=== PATIENT | female | born 1985 | race Caucasian/White ===

== ENCOUNTER 2021-03-30 15:52 | Inpatient (IN) | payer OTHER ==
[~2021-03-30] VITALS: Ht 165.1 cm; Wt 84.2 kg
[~2021-03-30 15:52] MED LIST: AMOX1TAB64 PO
[2021-03-30] MEDS ORDERED: FLUO10CA13 PO (16:57)
[2021-03-30] MEDS ORDERED: SODIUM CHLORIDE FLUSH 10ML SYR IVF ONE (17:00)
--- NOTE | 2021-03-30 17:01 | NUR ---
HOLD ON IV/ACCESSING PORT UNTIL LAB RESULTS BACK. LABS DRAWN, VSS/UPDATED IN COMPUTER. CALL LIGHT WITHIN REACH.
[2021-03-30 17:10] LABS: BASOPHILS % (AUTO) 2 % (0-1); EOSINOPHILS % (AUTO) 1 % (1-7); LYMPHOCYTES % (AUTO) 31 % (22-44); MEAN CORPUSCULAR HEMOGLOBIN 29.2 pg (27.0-34.8); MEAN CORPUSCULAR HGB CONC 32.5 g/dL (32.4-35.8); MEAN PLATELET VOLUME 7.8 fL (7.4-10.4); MONOCYTES % (AUTO) 10 % (2-9); NEUTROPHILS % (AUTO) 56 % (42-75); PLATELET COUNT 472 x10^3/uL (130-400); RED BLOOD COUNT 4.33 x10^6/uL (3.82-5.3); RED CELL DISTRIBUTION WIDTH 19.3 % (9.6-15.2)
[2021-03-30 17:22] LABS: ALBUMIN 3.8 g/dL (3.4-5.0); ANION GAP 5 mmol/L (5-15); CALCIUM 8.7 mg/dL (8.5-10.1); CHLORIDE 108 mmol/L (98-107); CREATININE 0.67 mg/dL (0.55-1.02)
[2021-03-30] MEDS ORDERED: PANTOPRAZOLE 80 MG in SODIUM CHLORIDE 0.9% 50 ML IVPB ONE (18:00)
[2021-03-30] MEDS ORDERED: PANTOPRAZOLE 80 MG in SODIUM CHLORIDE 0.9% 100 ML IV SCH (18:00)
[2021-03-30] MEDS ORDERED: ONDANSETRON 2MG/ML, 2ML IVPush PRN (19:00)
[2021-03-30] MEDS ORDERED: BISACODYL 10 MG SUPP PR PRN (19:00)
[2021-03-30] MEDS ORDERED: ACETAMINOPHEN 325 MG TABLET PO PRN (19:00)
--- NOTE | 2021-03-30 19:02 | NUR ---
REPORT TO MARVA, TRANSFER OF CARE AT THIS TIME.
[2021-03-30] MEDS ORDERED: L.E.T SOLUTION TP ONE (19:05)
--- NOTE | 2021-03-30 19:22 | NUR ---
PORT ACCESSED WITH 1" PORT NEEDLE, UNDER STERILE TECHNIQUE. PT REFUSED LET OR NUMBING MEDICINE, AND PORT ACCESED X1 ATTEMPT, AND POSITIVE BLOOD DRAWBACK AND FLUSHES EASILY. PORT NEEDLE SECURED WELL WITH DRESSING AND PT IN NO ACUTE DISTRESS.
[2021-03-30 20:01] VITALS: BP 120/75
[2021-03-30] MEDS ORDERED: TRAZ-96 PO (20:03)
--- NOTE | 2021-03-30 20:06 | NUR ---
REPORT AND CARE CALLED TO FLOOR RN. PT TRANSFERRED UP WITHOUT INCIDENT.
[2021-03-30] MEDS: PANTOPRAZOLE 80 MG in SODIUM CHLORIDE 0.9% 100 ML IV SCH (20:20)
[2021-03-31 00:52] VITALS: BP 103/66
[2021-03-31] MEDS: PANTOPRAZOLE 80 MG in SODIUM CHLORIDE 0.9% 100 ML IV SCH (05:18)
[2021-03-31 05:40] LABS: BASOPHILS % (AUTO) 1 % (0-1); EOSINOPHILS % (AUTO) 3 % (1-7); LYMPHOCYTES % (AUTO) 39 % (22-44); MEAN CORPUSCULAR HEMOGLOBIN 29.5 pg (27.0-34.8); MEAN CORPUSCULAR HGB CONC 32.9 g/dL (32.4-35.8); MEAN PLATELET VOLUME 8.1 fL (7.4-10.4); MONOCYTES % (AUTO) 12 % (2-9); NEUTROPHILS % (AUTO) 45 % (42-75); PLATELET COUNT 469 x10^3/uL (130-400); RED BLOOD COUNT 4.25 x10^6/uL (3.82-5.3); RED CELL DISTRIBUTION WIDTH 19.6 % (9.6-15.2)
[2021-03-31 05:54] LABS: ANION GAP 4 mmol/L (5-15); CALCIUM 8.2 mg/dL (8.5-10.1); CHLORIDE 110 mmol/L (98-107)
[2021-03-31 05:56] LABS: CREATININE 0.66 mg/dL (0.55-1.02)
[2021-03-31 08:25] VITALS: BP 120/77
[2021-03-31] MEDS: FLUOXETINE 10 MG CAP PO SCH (09:16)
[2021-03-31] MEDS ORDERED: PROPOFOL 10 MG/ML, 20ML ONE ×2 (12:34)
[2021-03-31] MEDS ORDERED: MIDAZOLAM 1 MG/ML, 2ML ONE (12:34)
[2021-03-31] MEDS ORDERED: CHLORHEXIDINE 15 ML UDC ONE (12:37)
[2021-03-31] MEDS: PANTOPRAZOLE 40 MG IV IVPush SCH (15:20)
[2021-03-31] MEDS: SUCRALFATE 1 GM/10 ML UDC PO SCH ×2 (16:12→20:20)
[2021-03-31 19:16] VITALS: BP 121/83
[2021-04-01 00:23] VITALS: BP 103/54
[2021-04-01] MEDS: PANTOPRAZOLE 40 MG IV IVPush SCH (03:39)
[2021-04-01 07:14] VITALS: BP 117/76
[2021-04-01] MEDS: SUCRALFATE 1 GM/10 ML UDC PO SCH ×2 (09:07→11:49)
[2021-04-01] MEDS: FLUOXETINE 10 MG CAP PO SCH (09:07)
[2021-04-01] MEDS ORDERED: SUCR1TAB33 PO (12:21)
[2021-04-01] MEDS ORDERED: PANT40TA3 PO (12:21)
[2021-04-01 14:18] VITALS: BP 122/79
== END 2021-04-01 15:35 | disposition home or self-care (01) | DRG 378 ==
LOC: ED 17:40 → EDIP 18:04 → 3N 19:51 → DCLOUNGE 04-01 15:25
PROVIDERS: ADMIT Internal Medicine; ATTEND Internal Medicine
PROC: 0DB78ZX Excision of Stomach, Pylorus, Via Natural or Artificial Opening Endoscopic, Diagnostic (ICD-10-PCS; 2021-03-31)
PROC: 0DJD8ZZ Inspection of Lower Intestinal Tract, Via Natural or Artificial Opening Endoscopic (ICD-10-PCS; 2021-03-31)
PROC: 0W3P8ZZ Control Bleeding in Gastrointestinal Tract, Via Natural or Artificial Opening Endoscopic (ICD-10-PCS; principal; 2021-03-31 13:00)
DX: K31.811 Angiodysplasia of stomach and duodenum with bleeding (principal); D62 Acute posthemorrhagic anemia; Q89.01 Asplenia (congenital); K29.51 Unspecified chronic gastritis with bleeding; K27.4 Chronic or unspecified peptic ulcer, site unspecified, with hemorrhage; K20.91 Esophagitis, unspecified with bleeding; F32.9 Major depressive disorder, single episode, unspecified; Z79.899 Other long term (current) drug therapy; Z80.51 Family history of malignant neoplasm of kidney; Z82.49 Family history of ischemic heart disease and other diseases of the circulatory system; Z83.3 Family history of diabetes mellitus; Z87.11 Personal history of peptic ulcer disease; Z90.49 Acquired absence of other specified parts of digestive tract; Z88.8 Allergy status to other drugs, medicaments and biological substances
CPT/HCPCS: 36415; 80048; 82040; 82728; 83540; 83550; 84703; 85014; 85018; 85025; 86850; 86900; 87635; 88305; G0378; J2250; J2704; C9113

== ENCOUNTER 2021-06-18 09:08 | Outpatient (CLI) | payer OTHER ==
[~2021-06-18 09:08] MED LIST changes: +FLUO10CA13 PO; +PANT40TA3 PO; +SUCR1TAB33 PO; +TRAZ-96 PO
== END 2021-06-18 23:59 | disposition home or self-care (01) ==
LOC: CFH 09:08
PROVIDERS: ATTEND Internal Medicine
DX: R10.11 Right upper quadrant pain (principal); Z90.49 Acquired absence of other specified parts of digestive tract
CPT/HCPCS: 76705

== ENCOUNTER 2021-06-29 00:21 | Emergency (ER) | payer OTHER ==
[~2021-06-29] VITALS: Ht 165.1 cm; Wt 81.2 kg
[2021-06-29] MEDS ORDERED: MORPHINE SULFATE 4 MG/ML, 1ML IVPush PRN (02:30)
[2021-06-29] MEDS ORDERED: SODIUM CHLORIDE FLUSH 10ML SYR IVF ONE (02:30)
[2021-06-29] MEDS ORDERED: ONDANSETRON 2MG/ML, 2ML IVPush ONE (02:30)
[2021-06-29] MEDS ORDERED: SODIUM CHLORIDE 0.9% 1,000ML IVBOLUS ONE (02:30)
--- NOTE | 2021-06-29 03:30 | NUR ---
PT TO ROOM 12 AT THIS TIME. CARE ASSUMED. PT [id number]. REPORTS HAVING A GI BLEED WITH ABDOMINAL PAIN AND A HEADACHE FOR 3 DAYS. PT HAS HISTORY OF GI BLEEDS. PT CONNECTED TO MONITOR.
[2021-06-29] MEDS ORDERED: ONDANSETRON 2MG/ML, 2ML ONE (03:49)
[2021-06-29] MEDS ORDERED: MORPHINE SULFATE 4 MG/ML, 1ML ONE (03:49)
[2021-06-29] MEDS ORDERED: DIPHENHYDRAMINE 50 MG/ML, 1ML IVPush ONE (04:00)
[2021-06-29] MEDS ORDERED: ACETAMINOPHEN 500 MG TABLET PO ONE (04:00)
[2021-06-29] MEDS ORDERED: PROCHLORPERAZINE 5 MG/ML, 2ML IVPush ONE (04:00)
[2021-06-29 04:29] LABS: BASOPHILS % (AUTO) 1 % (0-1); EOSINOPHILS % (AUTO) 6 % (1-7); LYMPHOCYTES % (AUTO) 24 % (22-44); MEAN CORPUSCULAR HEMOGLOBIN 27.1 pg (27.0-34.8); MEAN CORPUSCULAR HGB CONC 32.6 g/dL (32.4-35.8); MEAN PLATELET VOLUME 7.8 fL (7.4-10.4); MONOCYTES % (AUTO) 12 % (2-9); NEUTROPHILS % (AUTO) 57 % (42-75); PLATELET COUNT 557 x10^3/uL (130-400); RED BLOOD COUNT 4.08 x10^6/uL (3.82-5.3); RED CELL DISTRIBUTION WIDTH 15.2 % (9.6-15.2)
[2021-06-29 04:37] LABS: ALANINE AMINOTRANSFERASE 43 U/L (12-78); ALBUMIN 3.2 g/dL (3.4-5.0); ANION GAP 6 mmol/L (5-15); CALCIUM 8.8 mg/dL (8.5-10.1); CHLORIDE 107 mmol/L (98-107); CREATININE 0.67 mg/dL (0.55-1.02)
[2021-06-29 04:38] LABS: INTERNATIONAL NORMALIZED RATIO 1.01 (0.93-1.1); PROTHROMBIN TIME 10.8 Seconds (9.6-11.5)
[2021-06-29 04:39] LABS: ALKALINE PHOSPHATASE 97 U/L (45-117); BILIRUBIN,TOTAL 0.1 mg/dL (0.2-1.0); TOTAL PROTEIN 7.5 g/dL (6.4-8.2)
--- NOTE | 2021-06-29 05:32 | NUR ---
PT REPORTS IMPROVEMENT OF PAIN.
--- NOTE | 2021-06-29 06:34 | NUR ---
PROVIDER AT BEDSIDE.
[2021-06-29] MEDS ORDERED: DIPHENHYDRAMINE 50 MG/ML, 1ML ONE (06:37)
[2021-06-29] MEDS ORDERED: ACETAMINOPHEN 500 MG TABLET ONE (06:37)
[2021-06-29] MEDS ORDERED: PROCHLORPERAZINE 5 MG/ML, 2ML ONE (06:37)
--- NOTE | 2021-06-29 06:51 | NUR ---
RECEIVED REPORT FROM MARGOTH CHINO, PLAN OF CARE DISCUSSED.
[2021-06-29 07:50] VITALS: BP 132/80
--- NOTE | 2021-06-29 07:50 | NUR ---
Patient/Caregiver given discharge instructions and they have confirmed that they understand the instructions. Patient ambulatory with steady gait. NAD, all questions answered appropriately, denies additional needs at this time. No personal belongings left in room after discharge.
== END 2021-06-29 07:54 | disposition home or self-care (01) ==
LOC: ED 05:30
DX: K92.1 Melena (principal); G44.219 Episodic tension-type headache, not intractable
CPT/HCPCS: 36415; 80053; 83690; 85025; 85610; 85730; 86850; 86900; 96374; 96375; 99284; J0780; J1200; J7030